=== PATIENT | female | born 2005 | race Caucasian/White ===

== ENCOUNTER 2024-09-28 13:00 | Emergency (ER) | payer MEDICAID ==
[~2024-09-28] VITALS: Ht 170.2 cm; Wt 70.3 kg
[2024-09-28 13:04] VITALS: BP 124/72; TEMP 36.9; O2SAT 100
[2024-09-28 13:05] VITALS: PULSE 100; RESP 16; O2SAT 99
[2024-09-28] MEDS ORDERED: BENZ1LOZ73 MT (14:11)
[2024-09-28] MEDS ORDERED: PHEN20SP MT (14:11)
[2024-09-28] MEDS ORDERED: AMOX1TAB16 MT (14:11)
[2024-09-28] MEDS ORDERED: AMOXICILLIN/POTASSIUM CLAVULANATE 875/125MG TAB PO ONE (14:15)
[2024-09-28] MEDS: AMOXICILLIN/POTASSIUM CLAVULANATE 875/125MG TAB PO NR (14:33)
== END 2024-09-28 14:37 | disposition home or self-care (01) ==
LOC: ER 13:00
DX: J20.9 Acute bronchitis, unspecified (principal)
CPT/HCPCS: 99283